=== PATIENT | female | born 1930 | race Caucasian/White ===

== ENCOUNTER → 2016-10-29 | Outpatient (CLI) | payer MEDICARE ==
--- NOTE | 2016-10-29 16:31 | PCVCIMAG ---
APPROVED REPORT Exam: Stress Echocardiogram Indication: Chest pain Patient Location: Echo lab Stress Nurse: Thea Foster RN Status: routine HR: 91 bpm Rhythm: NSR Medical History Exercise History: Sedentary Procedure The patient underwent an Exercise Stress Test using MANUAL. Blood pressure, heart rate, and EKG were monitored. An Echocardiogram was performed by electrical mechanical technician in four stages in quad fashion. At peak stress, four selected images were obtained and placed side by side with resting images for comparison. Stress Test Details Stress Test: Exercise stress was performed using a manual protocol. HR Resting HR: 91 bpmMax Heart Rate (APMHR): 136 bpm Max HR Achieved: 142 bpmTarget HR (85% APMHR): 115 bpm % of APMHR: 104 Recovery HR: 93 bpm HR response to stress: Normal HR response to stress BP Resting BP: 144/72 mmHg Recovery BP: 164/80 mmHg ECG Resting ECG: Sinus Rhythm Stress ECG: Sinus Rhythm ST Change: Normal Maximum ST Deviation: 0 mm Arrhythmia: none Recovery ECG: Sinus Rhythm Recovery ST Change: Normal Recovery ST Deviation: 0 mm Recovery Arrhythmia: none Clinical Reason for Termination: Maximal effort Stress Symptoms: none Exercise duration: 3 min 13 sec Highest Stage Achieved: 0.9 mph with 10% grade Exercise capacity: 2.9 METs Overall Exercise Capacity for Age: Poor Angina Score: None Stress ECG Conclusion Clinical: Non-ischemic ECG: Non-ischemic Guzmán Treadmill Score is 3.0 which is Moderate risk. Pre-Stress Echo Normal wall motion in all segments on baseline images. Post-Stress Echo Normal augmentation of wall motion in all segments on post stress images. Clinical No clinical or ECG evidence for ischemia. Conclusion Clinical Response: Non-ischemic Exercise Capacity: Below Average Stress ECG Response: Non-ischemic Stress Echo Images: Non-ischemic The left ventricle is normal in size and wall thickness in both the rest and stress images. Normal stress echocardiogram with maximal exercise stress. No echocardiographic evidence for exercise induced ischemia. <Conclusion> The left ventricle is normal in size and wall thickness in both the rest and stress images. Normal stress echocardiogram with maximal exercise stress. No echocardiographic evidence for exercise induced ischemia.
== END | disposition home or self-care (01) ==
LOC: PCVCCLINIC 15:12
PROVIDERS: ATTEND Internal Medicine
DX: R07.9 Chest pain, unspecified (principal)
CPT/HCPCS: 93325; 93351